=== PATIENT | male | born 1965 | race Hispanic/Latino ===

== ENCOUNTER → 2018-11-20 | Outpatient (CLI) | payer BC, OTHER | END | disposition home or self-care (01) | LOC: SHCH 15:53 | PROVIDERS: ATTEND Internal Medicine Cardiovascular Disease | DX: R00.2 Palpitations (principal) | CPT/HCPCS: 93306 ==

== ENCOUNTER → 2020-12-13 | Outpatient (CLI) | payer OTHER | END | disposition home or self-care (01) | LOC: RAH 10:30 | PROVIDERS: ATTEND Orthopaedic Surgery | DX: S83.241A Other tear of medial meniscus, current injury, right knee, initial encounter (principal); M22.41 Chondromalacia patellae, right knee; X58.XXXA Exposure to other specified factors, initial encounter; Y93.89 Activity, other specified; Y92.89 Other specified places as the place of occurrence of the external cause; Y99.8 Other external cause status | CPT/HCPCS: 73721 ==

== ENCOUNTER 2022-01-10 08:05 | Day surgery (SDC) | payer OTHER ==
[2022-01-08 10:48] LABS: BASOPHILS % (AUTO) 0.8 % (0.0-5.0); EOSINOPHILS % (AUTO) 0.6 % (0.0-8.0); HEMATOCRIT 45.9 % (42-54); LYMPHOCYTES % (AUTO) 24.9 % (21.0-51.0); MEAN CORPUSCULAR HEMOGLOBIN 30.3 pg (27.0-33.0); MEAN CORPUSCULAR HGB CONC 34.2 g/dL (32.0-36.0); MEAN CORPUSCULAR VOLUME 88.4 fL (79-99); MONOCYTES % (AUTO) 9.1 % (3.0-13.0); NEUTROPHILS % (AUTO) 64.4 % (40.0-77.0); PLATELET COUNT (AUTO) 277 K/uL (130-400); RED BLOOD CELL COUNT(AUTO) 5.19 MIL/uL (4.50-6.20); RED CELL DISTRIBUTION WIDTH 12.6 % (11.0-15.5); WHITE BLOOD COUNT (AUTO) 5.1 K/uL (4.8-10.8)
[2022-01-08 11:00] LABS: POTASSIUM 3.8 mmol/L (3.5-5.1)
[2022-01-08 14:29] VITALS: BP 123/69
[~2022-01-10] VITALS: Ht 180.3 cm; Wt 93.0 kg
[2022-01-10] VITALS (16 sets, daily range): BP systolic 104–142; BP diastolic 65–89
[~2022-01-10 08:05] MED LIST: AMIL5TAB8 PO; AMLO2.5T4 PO; APIX2.5T PO; ATOR10 PO; HYDR25TA PO; LOSA100T58 PO; METF-444 PO; OMEP40CA21 PO
[2022-01-10] MEDS ORDERED: CLINDAMYCIN IVPB 900MG/50ML 50 ML IV ONE (08:41)
[2022-01-10] MEDS ORDERED: 0.9%NACL 1000ML 1,000 ML IV ONE (08:41)
[2022-01-10] MEDS ORDERED: SUCCINYLCHOLINE CHLORIDE 20 MG/ML 10 ML VIAL ONE (10:14)
[2022-01-10] MEDS ORDERED: MIDAZOLAM HCL 1 MG/ML 2ML VIAL ONE (10:14)
[2022-01-10] MEDS ORDERED: FENTANYL CITRATE PF 50 MCG/1 ML 2ML VIAL ONE (10:14)
[2022-01-10] MEDS ORDERED: PROPOFOL 10 MG/ML 20ML VIAL IV ONE (10:14)
[2022-01-10] MEDS ORDERED: ROCURONIUM 10MG/1ML SYR 10 MG/ML ML ONE (10:14)
[2022-01-10] MEDS ORDERED: ONDANSETRON 4MG INJ ONE (10:15)
[2022-01-10] MEDS ORDERED: DEXAMETHASONE SOD PHOSPHATE 10MG/ML 1ML VIAL ONE (10:15)
[2022-01-10] MEDS ORDERED: DEXTROSE 50%-WATER 50 ML DISP.SYRIN IV ONE (10:20)
[2022-01-10] MEDS ORDERED: GLYCOPYRROLATE 1 MG/5 ML SYRINGE ONE (11:03)
[2022-01-10] MEDS ORDERED: NEOSTIGMINE 5MG/5ML SYR IV ONE (11:03)
[2022-01-10] MEDS ORDERED: SUGAMMADEX SODIUM 200 MG/2 ML VIAL IV ONE (11:23)
[2022-01-10] MEDS ORDERED: ACET-2079 PO (11:33)
[2022-01-10] MEDS ORDERED: CLIN300C3 PO (11:33)
[2022-01-10] MEDS ORDERED: RACEPINEPHRINE HCL 2.25% 0.5 ML NEB SOLN ONE (11:38)
[2022-01-10] MEDS ORDERED: MEPERIDINE-PF 25 MG/ML SYG ONE ×2 (11:45→12:01)
== END 2022-01-10 13:19 | disposition home or self-care (01) ==
LOC: DAH 08:05
PROVIDERS: ATTEND Orthopaedic Surgery
DX: S83.241A Other tear of medial meniscus, current injury, right knee, initial encounter (principal); M94.261 Chondromalacia, right knee; E11.9 Type 2 diabetes mellitus without complications; I10 Essential (primary) hypertension; K21.9 Gastro-esophageal reflux disease without esophagitis; Z82.49 Family history of ischemic heart disease and other diseases of the circulatory system; Z83.3 Family history of diabetes mellitus; Z88.0 Allergy status to penicillin; X58.XXXA Exposure to other specified factors, initial encounter; Y92.89 Other specified places as the place of occurrence of the external cause; Y99.0 Civilian activity done for income or pay
CPT/HCPCS: 87426; 80048; 85025; 36415; 29881; 94640; 82948 ×4; J7120; A4649; J3010; J3490 ×2; J1100; J2710; J0330; J7030; J7070; J2250; J2704; J2405; J2175 ×2; A6223; A4930; A5120; A4215; A4223; A4222; A4221; A4663; A6450

== ENCOUNTER → 2023-09-30 | Outpatient (CLI) | payer OTHER ==
[~2023-09-30] MED LIST changes: +ACET-2079 PO; +CLIN300C3 PO; -LOSA100T58 PO; +LOSA100T59 PO
== END | disposition home or self-care (01) ==
LOC: OIH 14:57
PROVIDERS: ATTEND Nurse Practitioner Family
DX: Z13.6 Encounter for screening for cardiovascular disorders (principal)
CPT/HCPCS: 75571

== ENCOUNTER 2024-03-01 11:36 | Emergency (ER) | payer BC, OTHER ==
[~2024-03-01] VITALS: Ht 177.8 cm; Wt 98.0 kg
[2024-03-01 11:50] VITALS: TEMP 98.6
[2024-03-01 14:35] VITALS: BP 126/87; PULSE 96; RESP 20; O2SAT 99
== END 2024-03-01 15:42 | disposition home or self-care (01) ==
LOC: EDH 11:36
DX: I10 Essential (primary) hypertension (principal); M79.89 Other specified soft tissue disorders; E11.9 Type 2 diabetes mellitus without complications; E78.00 Pure hypercholesterolemia, unspecified; K21.9 Gastro-esophageal reflux disease without esophagitis; M79.601 Pain in right arm; Z79.01 Long term (current) use of anticoagulants; Z79.899 Other long term (current) drug therapy; Z88.0 Allergy status to penicillin
CPT/HCPCS: 93971